=== PATIENT | female | born 1995 | race Two or more races ===

== ENCOUNTER 2021-02-22 11:38 | Emergency (ER) | payer OTHER ==
[~2021-02-22] VITALS: Ht 154.9 cm; Wt 52.2 kg
[2021-02-22] MEDS ORDERED: AZITHROMYCIN250 MG PO (16:18)
[2021-02-22] MEDS ORDERED: MEDROLPACK PO (16:18)
[2021-02-22] MEDS ORDERED: DOLOGEN 325-11 EACH PO (16:19)
== END 2021-02-22 16:24 | disposition home or self-care (01) ==
LOC: ER 11:38
DX: J06.9 Acute upper respiratory infection, unspecified (principal); J02.8 Acute pharyngitis due to other specified organisms; R50.9 Fever, unspecified; Z20.822 Contact with and (suspected) exposure to COVID-19